=== PATIENT | female | born 1985 | race Caucasian/White ===

== ENCOUNTER 2020-01-26 13:56 | Emergency (ER) | payer BC ==
[2020-01-26] MEDS ORDERED: IBUPROFEN 600 MG TABLET PO ONE (14:59)
[2020-01-26] MEDS ORDERED: ACETAMINOPHEN 325 MG TABLET PO ONE (14:59)
[2020-01-26] MEDS ORDERED: CETIRIZINE 10 MG TABLET PO ONE (15:03)
--- NOTE | 2020-01-26 15:05 | ER Document Report ---
ED Medical Screen (RME) - General Chief Complaint: Fever Stated Complaint: FEVER,DIZZY Time Seen by Provider: 01/26/20 14:53 Notes: Patient is a 34-year-old female who presents the emergency department with a chief complaint of a fever and dizziness. Patient states that her temperature at home was 102.3. She took TheraFlu this morning, but continued to not feel well. Patient admits to some rhinorrhea. Patient states her dizziness feels like she is on a boat. Past medical history includes hypothyroidism. Patient has not received her flu vaccine this year. Exam: Rhinorrhea noted. Patient appears not feeling well. Clear breath sounds. I have greeted and performed a rapid initial assessment of this patient. A comprehensive ED assessment and evaluation of the patient, analysis of test results and completion of medical decision making process will be conducted by an additional ED providers. - Related Data Allergies/Adverse Reactions: Penicillins Allergy (Verified 01/26/20 15:00) Physical Exam - Vital signs Vitals: Temp Pulse Resp BP Pulse Ox 101.2 F H 116 H 24 H 147/82 H 100 01/26/20 14:14 01/26/20 14:14 01/26/20 14:14 01/26/20 14:14 01/26/20 14:14 Course - Vital Signs Vital signs: Temp Pulse Resp BP Pulse Ox 101.2 F H 116 H 24 H 147/82 H 100 01/26/20 14:14 01/26/20 14:14 01/26/20 14:14 01/26/20 14:14 01/26/20 14:14
[2020-01-26 15:52] LABS: APPEARANCE,URINE CLEAR; BILIRUBIN,URINE NEGATIVE (NEGATIVE); COLOR,URINE YELLOW; GLUCOSE, URINE NEGATIVE (NEGATIVE); KETONES,URINE NEGATIVE (NEGATIVE); LEUKOCYTE ESTERASE,URINE NEGATIVE (NEGATIVE); NITRITE,URINE NEGATIVE (NEGATIVE); PROTEIN,URINE 30 mg/dL (NEGATIVE); URINE SPECIFIC GRAVITY 1.023
--- NOTE | 2020-01-26 15:53 | RADIOLOGY REPORT (SQ) ---
EXAM DESCRIPTION: CHEST 2 VIEWS COMPLETED DATE/TIME: 01/26/2020 3:38 pm REASON FOR STUDY: fever; cough COMPARISON: None. EXAM PARAMETERS: NUMBER OF VIEWS: Two views. TECHNIQUE: PA and lateral views of the chest were obtained.. RADIATION DOSE: NA LIMITATIONS: none FINDINGS: LUNGS AND PLEURA: No consolidation, pleural effusion or pneumothorax. MEDIASTINUM AND HILAR STRUCTURES: No mediastinal or hilar contour abnormality. HEART AND VASCULAR STRUCTURES: The cardiac silhouette and pulmonary vasculature are within normal ortega its. BONES: No acute findings. HARDWARE: None in the chest. OTHER: No other finding. IMPRESSION: No acute cardiopulmonary process. TECHNICAL DOCUMENTATION: JOB ID: [id number] 2010 [employer]- All Rights Reserved Reading location - IP/workstation name: [email or web address]
[2020-01-26 16:00] LABS: A TYPE INFLUENZA AG POSITIVE (NEGATIVE); B INFLUENZA AG NEGATIVE (NEGATIVE)
--- NOTE | 2020-01-26 16:12 | ER Document Report ---
ED General - General Chief Complaint: Flu Symptoms Stated Complaint: FEVER,DIZZY Time Seen by Provider: 01/26/20 14:53 Notes: HPI: Patient is a 34-year-old female who presents today with the onset this morning of some body aches, joint pain, back pain, and fever. She states minimal congestion. No cough. No sore throat, headache, neck stiffness, vomiting, abdominal pain, dysuria, or diarrhea. ROS: See HPI All other review of systems reviewed and otherwise negative Reviewed vital signs and nursing note as charted by RN. PHYSICAL EXAM: CONSTITUTIONAL: Alert and oriented and responds appropriately to questions. Well-appearing; well-nourished HEAD: Normocephalic; atraumatic EYES: PERRL; Conjunctivae clear, sclerae non-icteric ENT: Normal nose; no rhinorrhea; moist mucous membranes; pharynx without lesions noted NECK: Supple without meningismus; non-tender; no cervical lymphadenopathy, no masses CARD: Regular rate and rhythm; no murmurs; symmetric distal pulses RESP: Normal chest excursion without splinting or tachypnea; breath sounds clear and equal bilaterally; no wheezes, no rhonchi, no rales ABD/GI: Normal bowel sounds; non-distended; soft, non-tender; no palpable organomegaly or masses BACK: The back appears normal and is non-tender to palpation EXT: Normal ROM in all joints; non-tender to palpation; no edema SKIN: No acute lesions noted NEURO: CN 2-12 intact; 5/5 bilateral upper and lower extremity strength with sensation intact to light touch PSYCH: The patient's mood and manner are appropriate. Grooming and personal hygiene are appropriate. TRAVEL OUTSIDE OF THE [place] IN LAST 30 DAYS: No - Related Data Allergies/Adverse Reactions: Penicillins Allergy (Verified 01/26/20 15:00) Past Medical History - Social History Smoking Status: Former Smoker Frequency of alcohol use: Social Drug Abuse: None Family History: Reviewed & Not Pertinent Patient has suicidal ideation: No Patient has homicidal ideation: No Physical Exam - Vital signs Vitals: Temp Pulse Resp BP Pulse Ox 101.2 F H 116 H 24 H 147/82 H 100 01/26/20 14:14 01/26/20 14:14 01/26/20 14:14 01/26/20 14:14 01/26/20 14:14 Course - Re-evaluation Re-evalutation: 01/26/20 16:11 Given the above history and physical we did order basic labs including an influenza. Urine analysis shows no obvious infection. Positive influenza A. X-ray chest shows no obvious infiltrate. 01/26/20 16:25 Influenza A as recorded. I have had a long discussion with the patient and regarding risks and benefits. They deny Tamiflu at this time. They are within no close proximity with immunocompromised patients at their home, nor infants or elderly. - Vital Signs Vital signs: Temp Pulse Resp BP Pulse Ox 101.2 F H 116 H 24 H 147/82 H 100 01/26/20 14:14 01/26/20 14:14 01/26/20 14:14 01/26/20 14:14 01/26/20 14:14 - Laboratory Laboratory results interpreted by me: 01/26/20 15:15 Urine Protein 30 H Urine Blood MODERATE H Urine Urobilinogen 2.0 H Urine Ascorbic Acid 20 H Discharge - Discharge Clinical Impression: Influenza Condition: Good Disposition: HOME, SELF-CARE Additional Instructions: Come back immediately with any change in mental status, confusion, persistent vomiting, or any other acute problems. Please remember the Motrin and Tylenol instructions as we have discussed.
[2020-01-26 16:56] VITALS: BP 114/69
--- NOTE | 2020-01-26 17:47 | EKG REPORT ---
SEVERITY:- OTHERWISE NORMAL ECG - SINUS TACHYCARDIA BORDERLINE RIGHT AXIS DEVIATION : Confirmed by: Foster Blanco MD 26-Jan-2020 17:46:38
== END 2020-01-26 16:52 | disposition home or self-care (01) ==
LOC: ER 13:56
DX: J11.1 Influenza due to unidentified influenza virus with other respiratory manifestations (principal); R50.9 Fever, unspecified; R42 Dizziness and giddiness; M79.10 Myalgia, unspecified site; R68.89 Other general symptoms and signs
CPT/HCPCS: 71046; 81001; 87804; 93005; 93010; 99284

== ENCOUNTER 2020-09-06 03:36 | Emergency (ER) | payer BC ==
[2020-09-06] MEDS ORDERED: LIDOCAINE 1% INJ-PF (10 MG/ML) 30 ML SDV INJ ONE (08:03)
[2020-09-06] MEDS ORDERED: SULFAMETHOXAZOLE/TRIMETHOPRIM 800-160 MG TABLET PO ONE (08:13)
--- NOTE | 2020-09-06 08:13 | ER Document Report ---
ED Hand/Wrist Injury - General Chief Complaint: Finger Injury Stated Complaint: RIGHT ARM PAIN Time Seen by Provider: 09/06/20 07:53 Notes: HPI: 35-year-old female that presents with pain for around 3 days to the right middle finger. It is become "swollen". No trauma. No fevers. No history of diabetes. ROS: See HPI Reviewed vital signs and nursing note as charted by RN. PHYSICAL EXAM: CONSTITUTIONAL: Alert and oriented and responds appropriately to questions. Well-appearing; well-nourished EXT: Patient has what appears to be a paronychia to the medial dorsal aspect of the right middle finger. There is no obvious swelling or tracking up the finger. Very tender to palpation. TRAVEL OUTSIDE OF THE [place] IN LAST 30 DAYS: No - Related Data Allergies/Adverse Reactions: Penicillins Allergy (Verified 01/26/20 15:00) Past Medical History - Social History Smoking Status: Never Smoker Family History: Reviewed & Not Pertinent Physical Exam - Vital signs Vitals: Temp Pulse Resp BP Pulse Ox 97.7 F 79 15 122/77 98 09/06/20 03:54 09/06/20 03:54 09/06/20 03:54 09/06/20 03:54 09/06/20 03:54 Course - Re-evaluation Re-evalutation: 09/06/20 08:13 Given the above history and physical we will perform a digital block of the right middle finger and perform an incision and drainage to relieve the patient's abscess and pressure. Patient's last menstrual period was 2 weeks ago. 09/06/20 09:03 Digital block abscess I&D is performed. We will start the patient on a course of Bactrim. Accu-Chek is unremarkable. Patient will be discharged home with strict return precautions. - Vital Signs Vital signs: Temp Pulse Resp BP Pulse Ox 98.2 F 81 14 123/75 99 09/06/20 06:50 09/06/20 06:50 09/06/20 06:50 09/06/20 06:50 09/06/20 06:50 Procedures - Incision and Drainage Right Finger Type: Simple Anesthetic type: 1% Lidocaine mL's of anesthetic: 5 Blade size: 11 I&D procedure: Chlorprep applied Incision Method: Incision made by scalpel Notes: 09/06/20 09:04 I did perform a digital block of the right middle finger using 1% lidocaine without epinephrine. Good anesthesia uptake. Discharge - Discharge Clinical Impression: Paronychia of finger Qualifiers: Laterality: right Qualified Code(s): L03.011 - Cellulitis of right finger Condition: Good Disposition: HOME, SELF-CARE Additional Instructions: Come back immediately for any increased pain, swelling, fever, redness, or any other acute problems. Please change the dressing and keep the area clean and dry as discussed. Prescriptions: Sulfamethoxazole/Trimethoprim [Bactrim Ds Tablet] 2 each PO BID 7 Days #28 tablet
[2020-09-06 09:35] VITALS: BP 125/49
== END 2020-09-06 09:36 | disposition home or self-care (01) ==
LOC: ER 03:36
DX: L03.011 Cellulitis of right finger (principal); Z88.0 Allergy status to penicillin
CPT/HCPCS: 99283; 82962; 10060; J3490